=== PATIENT | female | born 2000 | race Caucasian/White ===

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

== ENCOUNTER 2021-11-02 19:33 | Emergency (ER) | payer OTHER, SELFPAY ==
[2021-11-02 19:34] VITALS: BP 141/87; PULSE 89; RESP 16; TEMP 36.3; O2SAT 99; BMI 31.2
--- NOTE | 2021-11-02 19:36 | RAD_ITS ---
STUDY: X-RAY - LEFT ELBOW REASON FOR EXAM: Female, 20 years old. Pain after trauma TECHNIQUE: 3 view(s) of the elbow. COMPARISON: None. FINDINGS: Normal visualized humerus, radius and ulna. Normal radiocapitellar and ulnotrochlear articulations. The soft tissue structures are unremarkable. RAD/Elbow min 3 Views IMPRESSION: Normal x-ray examination of the elbow. Electronically Signed: Felix Enriquez MD at 20:02 EDT ,
--- NOTE | 2021-11-02 21:07 | EDS_ITS ---
HPI History of Present Illness Chief Complaint: Upper Extremity Injury Informant: patient Narrative Narrative: Patient jumped out of a rolling human hamster cage. She reached out with her hands. She felt a popping sensation in her left elbow. No other injury. It is sore and with motion. Rest makes it better. She is right- handed. She hurt her left elbow. PFSH PFS Home Medications sertraline 25 mg PO DAILY 11/02/21 [History Last Taken Unknown] sertraline 50 mg PO DAILY 11/02/21 [History Last Taken Unknown] Allergy/AdvReac Type Severity Reaction Status Date / Time No Known Allergies Allergy Verified 11/02/21 19:35 Social History Smoking Status: Never smoker ROS ROS ED Constitutional Constitutional ED: Denies fever(s) Eyes Eyes: Denies blurry vision Cardiovascular Cardiovascular: Denies chest pain Respiratory/Chest Respiratory/Chest: Denies dyspnea Gastrointestinal Gastrointestinal: Denies nausea or vomiting Musculoskeletal Musculoskeletal: Reports other Details: See history of present illness ; Denies back pain or neck pain Integumentary Denies Abrasions Neurologic Neurologic: Denies headache(s), paresthesias or weakness Hematologic/Lymphatic Hematologic/Lymphatic: Denies easy bleeding or easy bruising EXAM Physical Exam Const Vital Signs: 11/02/21 19:34 Temperature 97.4 F L Temperature Source Temporal Pulse Rate 89 Respiratory Rate 16 Blood Pressure 141/87 H Blood Pressure Mean 105 Pulse Ox 99 Oxygen Delivery Method Room Air Positive well nourished and well developed General Appearance ED: well developed and NAD HEENT normocephalic and atraumatic Eyes EOMs intact bilaterally Neck full ROM General: Negative for tenderness Resp normal respiratory effort Cardio regular rate GI non-tender Palpation: soft Back/Spine Cervical Spine: Negative for cervical spine tenderness Thoracic Spine / Upper Back: Negative for thoracic spinal tenderness Lumbar Spine / Lower Back: Negative for lumbar spinal tenderness Extremity Extremity Narrative: Patient has some mild nonfocal tenderness around the left elbow. None distally in the forearm wrist or hand. None proximally. She has excellent range of motion still. No focal radial head tenderness. Neuro Sensorium / Orientation: alert Psych mental status grossly normal MDM MDM MDM Narrative Medical decision making narrative: Three-view x-ray of the left elbow looked at me and read by radiology shows no sign of acute fracture or dislocation. No notable fat pad. Patient will use Tylenol Motrin for pain. I will place her in a sling but I explained she needs to come out of it frequently for range of motion of wrist elbow and shoulder. She should only use the sling for most 2 or 3 days. This will prevent significant stiffness which can occur quickly and elbows and shoulders. If she still having symptoms in a couple weeks she may need repeat x-ray. Radiography Diagnostic Testing: Clinical Impression(s) from Imaging Studies Elbow X-Ray 11/02/21 19:36 IMPRESSION: Normal x-ray examination of the elbow. Electronically Signed: Felix Enriquez MD at 20:02 EDT , Discharge Plan Triage Chief Complaint: Upper Extremity Injury ED Provider: Juan Al Dx/Rx/DC Orders Clinical Impression: Injury of left elbow Instructions: ED Contusion, Elbow Prescriptions: No Action sertraline 25 mg tablet 25 mg PO DAILY RF: 0 sertraline 50 mg tablet 50 mg PO DAILY RF: 0 Referrals: Jessica Avitia MD [STAFF PHYSICIAN] - 1 Week if not improving Disposition Disposition: Home, Self Care
== END 2021-11-02 21:23 | disposition home or self-care (01) ==
PROVIDERS: Emergency Provider Emergency Medicine; Visit Provider Emergency Medicine
DX: S59.902A Unspecified injury of left elbow, initial encounter (principal); W17.89XA Other fall from one level to another, initial encounter; Y93.89 Activity, other specified; Y99.9 Unspecified external cause status; Y92.9 Unspecified place or not applicable
CPT/HCPCS: 73080; 99283